=== PATIENT | male | born 1980 | race Caucasian/White ===

== ENCOUNTER 2019-05-19 12:35 | Inpatient (IN) | payer MEDICAID ==
[~2019-05-19] VITALS: Ht 182.9 cm; Wt 133.8 kg
[2019-05-19] MEDS ORDERED: SODIUM CHLORIDE 0.9% 1,000 ML IV ONE (20:09)
[2019-05-19] MEDS ORDERED: CLONIDINE 0.1MG TABLET PO ONE (20:15)
[2019-05-19] MEDS ORDERED: MECLIZINE 25MG TABLET PO ONE (20:15)
[2019-05-19 20:37] LABS: BASOPHILS % 1.2 % (0.0-2.0); EOSINOPHILS % 1.1 % (0.0-5.0); HEMATOCRIT. 50.8 % (42.0-52.0); HEMOGLOBIN. 17.5 g/dL (14.0-18.0); LYMPHOCYTES % 33.8 % (20.0-50.0); MEAN CORPUSCULAR HEMOGLOBIN 32.1 pg (28.0-32.0); MEAN CORPUSCULAR VOLUME 93.2 fL (80.0-94.0); MEAN PLATELET VOLUME 8.7 fl (7.4-10.4); MONOCYTES % 8.8 % (2.0-8.0); NEUTROPHILS % 55.1 % (40.0-76.0); PLATELET 203 x1000/uL (130-400); RED BLOOD CELL COUNT 5.45 mill/uL (4.7-6.1); RED CELL DISTRIBUTION WIDTH 13.3 % (11.6-14.6)
[2019-05-19 20:42] LABS: CHLORIDE 97 mEq/L (98-107)
[2019-05-19 20:43] LABS: PARTIAL THROMBOPLASTIN TIME 25.4 sec (23.4-31.0); PROTHROMBIN TIME 10.4 sec (9.6-11.0)
[2019-05-19] MEDS ORDERED: ASPIRIN 325MG EC TABLET PO ONE (22:00)
[2019-05-19] MEDS ORDERED: ONDANSETRON HCL 4MG/2ML INJ IV PRN (22:30)
[2019-05-19] MEDS ORDERED: IPRATROPIUM/ALBUTEROL 0.5-3(2.5)MG/3ML NEB NEB PRN (22:30)
[2019-05-19] MEDS ORDERED: KETOROLAC 15MG/ML VIAL IV PRN (22:30)
[2019-05-19] MEDS ORDERED: ZOLPIDEM TARTRATE 5MG TABLET PO PRN (22:30)
[2019-05-19] MEDS ORDERED: ACETAMINOPHEN 325MG TABLET PO PRN (22:30)
[2019-05-19] MEDS ORDERED: MAGNESIUM/ALUMINUM HYDROXIDE/SIMETHICONE 30ML UDC PO PRN (22:30)
[2019-05-19] MEDS ORDERED: NITROGLYCERIN 0.4MG TABLET SL SL PRN (22:30)
[2019-05-19] MEDS ORDERED: DOCUSATE SODIUM 100MG CAPSULE PO PRN (22:30)
[2019-05-19] MEDS ORDERED: GUAIFENESIN 200MG/10ML SUGAR FREE UDC PO PRN (22:30)
[2019-05-19 23:09] LABS: ETHANOL BLOOD < 10 mg/dL
[2019-05-19 23:12] LABS: LDL CHOLESTEROL 157 mg/dL (5-100); TOTAL IRON BINDING CAPACITY 331 ug/dL (250-450)
[2019-05-19 23:14] LABS: HDL CHOLESTEROL 33 mg/dL (40-59)
[2019-05-19 23:38] LABS: VITAMIN B12 SERUM 1859 pg/mL (211-911)
[2019-05-19 23:44] LABS: FOLIC ACID (FOLATE) SERUM > 20.00 ng/mL (>5.38)
[2019-05-20] VITALS (34 sets, daily range): BP systolic 112–167; BP diastolic 48–120
[2019-05-20 05:39] LABS: EOSINOPHILS % 1.8 % (0.0-5.0); HEMATOCRIT. 46.5 % (42.0-52.0); HEMOGLOBIN. 16.2 g/dL (14.0-18.0); MEAN CORPUSCULAR HEMOGLOBIN 32.4 pg (28.0-32.0); MEAN CORPUSCULAR VOLUME 93.4 fL (80.0-94.0); MEAN PLATELET VOLUME 8.4 fl (7.4-10.4); MONOCYTES % 9.1 % (2.0-8.0); NEUTROPHILS % 56.1 % (40.0-76.0); PLATELET 185 x1000/uL (130-400); RED BLOOD CELL COUNT 4.98 mill/uL (4.7-6.1); RED CELL DISTRIBUTION WIDTH 12.9 % (11.6-14.6)
[2019-05-20 05:46] LABS: CHLORIDE 99 mEq/L (98-107)
[2019-05-20 05:53] LABS: PHOSPHORUS 3.4 mg/dL (2.5-4.9)
[2019-05-20] MEDS: CLONIDINE 0.1MG TABLET PO PRN (06:05)
[2019-05-20] MEDS ORDERED: ASPIRIN 325MG EC TABLET PO SCH (09:00)
[2019-05-20] MEDS: FAMOTIDINE 20MG TABLET PO SCH ×2 (09:55→21:11)
[2019-05-20] MEDS: LISINOPRIL 20MG TABLET PO SCH ×2 (09:56→21:11)
[2019-05-20] MEDS: METOPROLOL TARTRATE 25MG TABLET PO SCH ×2 (09:56→21:11)
[2019-05-20] MEDS ORDERED: POTASSIUM CHLORIDE 20MEQ TABLET SR PO NR (12:00)
[2019-05-20] MEDS ORDERED: ENOXAPARIN 40MG/0.4ML SYR SUBCUT NR (12:00)
[2019-05-20] MEDS ORDERED: NICARDIPINE 100 MG in SODIUM CHLORIDE 0.9% 60 ML IV PRN ×2 (12:30→14:30)
[2019-05-20] MEDS: CLOPIDOGREL 75MG TABLET PO SCH (12:43)
[2019-05-20] MEDS ORDERED: METF-414 PO (14:58)
[2019-05-20] MEDS ORDERED: ESOM20CA58 PO (14:58)
[2019-05-20] MEDS: DEXT 5%/LACTATED RINGERS 1,000 ML IV SCH (16:46)
[2019-05-20] MEDS ORDERED: DEXTROSE 50% WATER 50ML SYRINGE IV PRN (20:15)
[2019-05-20] MEDS: ATORVASTATIN CALCIUM 20MG TABLET PO SCH (21:09)
[2019-05-20] MEDS: ENOXAPARIN 40MG/0.4ML SYR SUBCUT SCH (21:11)
[2019-05-20] MEDS: BLOOD SUGAR DIAGNOSTIC STRIP TEST SCH (21:16)
[2019-05-20] MEDS: INSULIN LISPRO 100 UNITS/ML SUBCUT SCH (21:22)
[2019-05-20] MEDS: INSULIN GLARGINE UD 100 UNITS/ML SYR SUBCUT SCH (22:37)
[2019-05-21] VITALS (40 sets, daily range): BP systolic 118–165; BP diastolic 63–115
[2019-05-21 00:37] LABS: *AMPHETAMINES SCREEN URINE NEGATIVE (NEGATIVE); *BARBITURATES SCREEN URINE NEGATIVE (NEGATIVE)
[2019-05-21 00:38] LABS: *BENZODIAZEPINES SCREEN URINE NEGATIVE (NEGATIVE); *COCAINE SCREEN URINE NEGATIVE (NEGATIVE); CANNABINOID URINE SCREEN PRESUMTIVE POSITIVE (NEGATIVE); METHADONE URINE SCREEN NEGATIVE (NEGATIVE); OPIATES URINE SCREEN NEGATIVE (NEGATIVE); PHENCYCLIDINE URINE SCREEN NEGATIVE (NEGATIVE)
[2019-05-21 05:34] LABS: BASOPHILS % 1.4 % (0.0-2.0); EOSINOPHILS % 3.2 % (0.0-5.0); HEMATOCRIT. 42.2 % (42.0-52.0); HEMOGLOBIN. 14.8 g/dL (14.0-18.0); LYMPHOCYTES % 43.4 % (20.0-50.0); MEAN CORPUSCULAR HEMOGLOBIN 32.7 pg (28.0-32.0); MEAN CORPUSCULAR VOLUME 93.2 fL (80.0-94.0); MEAN PLATELET VOLUME 8.4 fl (7.4-10.4); MONOCYTES % 7.7 % (2.0-8.0); NEUTROPHILS % 44.3 % (40.0-76.0); PLATELET 169 x1000/uL (130-400); RED BLOOD CELL COUNT 4.53 mill/uL (4.7-6.1); RED CELL DISTRIBUTION WIDTH 12.8 % (11.6-14.6)
[2019-05-21] MEDS: DEXT 5%/LACTATED RINGERS 1,000 ML IV SCH (05:34)
[2019-05-21 05:43] LABS: CHLORIDE 103 mEq/L (98-107)
[2019-05-21 05:54] LABS: PHOSPHORUS 3.6 mg/dL (2.5-4.9)
[2019-05-21] MEDS: BLOOD SUGAR DIAGNOSTIC STRIP TEST SCH ×4 (06:11→21:00)
[2019-05-21] MEDS: INSULIN LISPRO 100 UNITS/ML SUBCUT SCH ×4 (06:19→21:38)
[2019-05-21] MEDS: CLOPIDOGREL 75MG TABLET PO SCH (08:49)
[2019-05-21] MEDS: METOPROLOL TARTRATE 25MG TABLET PO SCH ×2 (08:50→21:58)
[2019-05-21] MEDS: FAMOTIDINE 20MG TABLET PO SCH ×2 (08:50→21:40)
[2019-05-21] MEDS: ENOXAPARIN 40MG/0.4ML SYR SUBCUT SCH ×2 (08:51→21:50)
[2019-05-21] MEDS: LISINOPRIL 20MG TABLET PO SCH ×2 (08:51→21:40)
[2019-05-21] MEDS: HYDRALAZINE 20MG/ML VIAL IV PRN (13:17)
[2019-05-21 19:15] LABS: T4 FREE 1.42 ng/dL (0.76-1.46)
[2019-05-21] MEDS ORDERED: POTASSIUM CHLORIDE 20MEQ TABLET SR PO SCH (19:30)
[2019-05-21] MEDS ORDERED: IOHEXOL-350 100 ML BOTTLE ONE (20:19)
[2019-05-21] MEDS ORDERED: KCL 20MEQ/100ML PREMIX 100 ML IV SCH (21:00)
[2019-05-21] MEDS: INSULIN GLARGINE UD 100 UNITS/ML SYR SUBCUT SCH (21:35)
[2019-05-21] MEDS: CLONIDINE 0.1MG TABLET PO PRN (21:57)
[2019-05-21] MEDS: ATORVASTATIN CALCIUM 20MG TABLET PO SCH (21:57)
[2019-05-22] VITALS (32 sets, daily range): BP systolic 114–167; BP diastolic 63–111
[2019-05-22] MEDS: HYDRALAZINE 20MG/ML VIAL IV PRN (04:49)
[2019-05-22 05:42] LABS: BASOPHILS % 1.3 % (0.0-2.0); HEMATOCRIT. 44.5 % (42.0-52.0); HEMOGLOBIN. 15.5 g/dL (14.0-18.0); LYMPHOCYTES % 45.5 % (20.0-50.0); MEAN CORPUSCULAR HEMOGLOBIN 32.4 pg (28.0-32.0); MEAN PLATELET VOLUME 8.6 fl (7.4-10.4); MONOCYTES % 7.3 % (2.0-8.0); NEUTROPHILS % 41.9 % (40.0-76.0); PLATELET 176 x1000/uL (130-400); RED BLOOD CELL COUNT 4.78 mill/uL (4.7-6.1); RED CELL DISTRIBUTION WIDTH 12.8 % (11.6-14.6)
[2019-05-22 05:50] LABS: CHLORIDE 104 mEq/L (98-107)
[2019-05-22] MEDS: INSULIN LISPRO 100 UNITS/ML SUBCUT SCH ×4 (06:36→20:21)
[2019-05-22] MEDS: BLOOD SUGAR DIAGNOSTIC STRIP TEST SCH ×4 (06:37→20:16)
[2019-05-22] MEDS: CLOPIDOGREL 75MG TABLET PO SCH (09:25)
[2019-05-22] MEDS: METOPROLOL TARTRATE 25MG TABLET PO SCH ×2 (09:25→20:04)
[2019-05-22] MEDS: FAMOTIDINE 20MG TABLET PO SCH ×2 (09:26→20:04)
[2019-05-22] MEDS: LISINOPRIL 20MG TABLET PO SCH ×2 (09:26→20:05)
[2019-05-22] MEDS: ENOXAPARIN 40MG/0.4ML SYR SUBCUT SCH ×2 (09:27→20:04)
[2019-05-22] MEDS: ATORVASTATIN CALCIUM 20MG TABLET PO SCH (20:04)
[2019-05-22] MEDS ORDERED: INSULIN GLARGINE UD 100 UNITS/ML SYR SUBCUT SCH (22:00)
[2019-05-23] VITALS (14 sets, daily range): BP systolic 105–140; BP diastolic 45–97
[2019-05-23] MEDS: BLOOD SUGAR DIAGNOSTIC STRIP TEST SCH ×2 (06:19→12:00)
[2019-05-23] MEDS: INSULIN LISPRO 100 UNITS/ML SUBCUT SCH ×2 (06:20→12:14)
[2019-05-23] MEDS: FAMOTIDINE 20MG TABLET PO SCH (08:02)
[2019-05-23] MEDS: CLOPIDOGREL 75MG TABLET PO SCH (08:02)
[2019-05-23] MEDS: METOPROLOL TARTRATE 25MG TABLET PO SCH (08:02)
[2019-05-23] MEDS: LISINOPRIL 20MG TABLET PO SCH (08:02)
[2019-05-23] MEDS: ENOXAPARIN 40MG/0.4ML SYR SUBCUT SCH (08:03)
[2019-05-24 13:07] LABS: ANTI-CARDIOLIPIN AB IGA < 9 APL U/mL (0-11); ANTI-CARDIOLIPIN AB IGG < 9 GPL U/mL (0-14); ANTI-CARDIOLIPIN AB IGM < 9 MPL U/mL (0-12)
[2019-05-24 15:10] LABS: ANTI-THROMBIN ACTIVITY 93 % (75-135); DRVVT LA 36.4 sec (0.0-47.0); PROTEIN C FUNCTIONAL 113 % (73-180); PTT-LA 34.6 sec (0.0-51.9)
[2019-05-25 06:10] LABS: LUPUS ANTICOAG INTERPRETATION Comment: (.)
== END 2019-05-23 13:42 | disposition home or self-care (01) | DRG 45 ==
LOC: ER 14:00 → 7WST 22:15 → ENRESERV 05-20 12:00 → MICUSO 05-20 14:19
PROVIDERS: ADMIT Internal Medicine; ATTEND Internal Medicine
DX: I63.81 Other cerebral infarction due to occlusion or stenosis of small artery (principal); E11.65 Type 2 diabetes mellitus with hyperglycemia; K76.0 Fatty (change of) liver, not elsewhere classified; R27.0 Ataxia, unspecified; I10 Essential (primary) hypertension; E87.1 Hypo-osmolality and hyponatremia; E87.6 Hypokalemia; E66.01 Morbid (severe) obesity due to excess calories; E78.00 Pure hypercholesterolemia, unspecified; E78.5 Hyperlipidemia, unspecified; F12.10 Cannabis abuse, uncomplicated; R74.0 Nonspecific elevation of levels of transaminase and lactic acid dehydrogenase [LDH]; Z79.899 Other long term (current) drug therapy; Z82.49 Family history of ischemic heart disease and other diseases of the circulatory system; Z68.41 Body mass index [BMI] 40.0-44.9, adult; Z91.14 Patient's other noncompliance with medication regimen; Z91.11 Patient's noncompliance with dietary regimen
CPT/HCPCS: 36415; 70496; 70544; 70551; 71045; 80053; 80061; 80305; 80320; 81400; 81403; 81407; 81479; 82607; 82746; 82962; 83036; 83540; 83550; 83735; 83880; 84100; 84439; 84443; 84481; 84484; 85025; 85300; 85303; 85306; 85613; 85732; 86147; 93005; 93306; 93880; 93970; 96372; 97162; 99285; J0360; J1650; J1815; J3480; J7030; J8597; Q9967; G0480